=== PATIENT | male | born 1955 | race Caucasian/White ===

== ENCOUNTER 2021-02-06 17:30 | Emergency (ER) | payer OTHER ==
[~2021-02-06 17:30] MED LIST: ASPIR-LOW81 MG PO; CIPRO500 MG PO; CITRACAL + BON1 EACH PO; JANUMET 50-5001 EACH PO; KRILL OIL 5001 EAC1 PO; LOPRESSOR50 MG PO; MAGNESIUM250 M1 PO; NEURONTIN400 MG PO; VITAMIN D-32000 UNIT PO; ZOCOR40 MG PO; norco
[2021-02-06 20:05] LABS: BASOPHIL 0.5 % (0-2); EOSINOPHIL 1.9 % (0-7); HCT 46.9 % (42.0-52.0); HGB 14.9 g/dl (13.2-18.0); LYMPHOCYTE 35.2 % (15-48); MCH 29.4 pg (25.0-31.0); MCHC 31.8 g/dL (32.0-36.0); MCV 92.7 fL (78.0-100.0); MONOCYTE 6.6 % (0-12); MPV 12.7 fL (6.0-9.5); NEUTROPHIL 55.3 % (41-80); NRBC 0; PLT 162 K/uL (150-400); RBC 5.06 M/uL (4.70-6.00); RDW 15.3 % (11.5-14.0); WBC 7.9 K/uL (4.0-10.5)
[2021-02-06 20:18] LABS: LACTIC ACID 3.5 mmol/L (0.4-1.9)
[2021-02-06 20:36] LABS: ALBUMIN 3.5 g/dL (3.4-5.0); BILIRUBIN - TOTAL 0.3 mg/dL (0.2-1.0); BUN/CREAT RATIO (CALC) 37.2 RATIO; CREATININE 0.78 mg/dL (0.67-1.17); GLOBULIN (CALCULATION) 4.3 g/dL; POTASSIUM 4.1 mmol/L (3.5-5.1); TOTAL PROTEIN 7.8 g/dL (6.4-8.2)
[2021-02-06 20:49] LABS: BILIRUBIN 2+ mg/dL (NEGATIVE); BLOOD TRACE-INTACT Ery/uL (NEGATIVE); COLOR YELLOW (YELLOW); GLUCOSE (U) NORMAL (NORMAL); LEUKOCYTES 1+ Leu/uL (NEGATIVE); NITRITE NEGATIVE (NEGATIVE); PROTEIN TRACE (LOW) mg/dL (NEGATIVE); SPECIFIC GRAVITY >=1.030 (1.001-1.030); UROBILINOGEN 0.2 mg/dL (0.2-1.0)
[2021-02-06 20:50] LABS: CLARITY HAZY (CLEAR)
[2021-02-06 20:52] LABS: CORONAVIRUS 2019 SARS-COV-2 NEGATIVE (NEGATIVE); INFLUENZA A NAA NEGATIVE (NEGATIVE)
[2021-02-06 21:01] LABS: URINARY WBC 20-50
[2021-02-06 21:02] LABS: BACTERIA 2+; GRANULAR CASTS TRACE
[2021-02-06 21:04] LABS: YEAST PRESENT
[2021-02-06] MEDS ORDERED: BROMFED DM COU473 ML PO (23:09)
[2021-02-06] MEDS ORDERED: PHENERGAN25 M1 PO (23:09)
[2021-02-06] MEDS ORDERED: LEVAQUIN750 MG PO (23:09)
== END 2021-02-06 23:40 | disposition home or self-care (01) ==
LOC: FER 17:30
PROVIDERS: Emergency Medicine Emergency Medical Services
DX: J06.9 Acute upper respiratory infection, unspecified (principal); N39.0 Urinary tract infection, site not specified; I10 Essential (primary) hypertension; E11.9 Type 2 diabetes mellitus without complications; F17.200 Nicotine dependence, unspecified, uncomplicated; Z20.822 Contact with and (suspected) exposure to COVID-19; Z79.82 Long term (current) use of aspirin; Z79.899 Other long term (current) drug therapy
CPT/HCPCS: 36415; 71045; 80053; 81001; 83605; 84145; 84439; 84443; 84484; 85025; 87040; 87088; 93005; J0696; J2405; J7040; Q0169; U0002

== ENCOUNTER 2021-08-03 19:12 | Emergency (ER) | payer MEDICARE ==
[~2021-08-03 19:12] MED LIST changes: +BROMFED DM COU473 ML PO; +LEVAQUIN750 MG PO; +PHENERGAN25 M1 PO
[2021-08-03 23:16] LABS: BASOPHIL 0.3 % (0-2); EOSINOPHIL 0.1 % (0-7); HGB 11.6 g/dl (13.2-18.0); LYMPHOCYTE 12.6 % (15-48); MCH 29.4 pg (25.0-31.0); MCHC 32.2 g/dL (32.0-36.0); MCV 91.1 fL (78.0-100.0); MONOCYTE 6.6 % (0-12); MPV 10.9 fL (6.0-9.5); NRBC 0; PLT 203 K/uL (150-400); RBC 3.95 M/uL (4.70-6.00); RDW 16.9 % (11.5-14.0)
[2021-08-03 23:34] LABS: ALBUMIN 3.2 g/dL (3.4-5.0); BILIRUBIN - TOTAL 0.4 mg/dL (0.2-1.0); CREATININE 1.48 mg/dL (0.67-1.17); GLOBULIN (CALCULATION) 4.4 g/dL; POTASSIUM 3.8 mmol/L (3.5-5.1); TOTAL PROTEIN 7.6 g/dL (6.4-8.2)
[2021-08-04 01:48] LABS: BILIRUBIN NEGATIVE (NEGATIVE); BLOOD 2+ Ery/uL (NEGATIVE); CLARITY CLEAR (CLEAR); COLOR YELLOW (YELLOW); GLUCOSE (U) NORMAL (NORMAL); LEUKOCYTES 2+ Leu/uL (NEGATIVE); NITRITE NEGATIVE (NEGATIVE); PROTEIN 1+ mg/dL (NEGATIVE); SPECIFIC GRAVITY 1.015 (1.001-1.030); UROBILINOGEN 0.2 mg/dL (0.2-1.0)
[2021-08-04 01:55] LABS: BACTERIA 4+; URINARY WBC 20-50
[2021-08-04 01:56] LABS: SQUAMOUS EPITHELIAL CELLS RARE
[2021-08-04] MEDS ORDERED: BACTRIM DS TAB1 EACH PO (04:38)
== END 2021-08-04 04:50 | disposition home or self-care (01) ==
LOC: FER 19:12
PROVIDERS: Emergency Medicine
DX: R19.7 Diarrhea, unspecified (principal); N39.0 Urinary tract infection, site not specified; N20.0 Calculus of kidney; N17.9 Acute kidney failure, unspecified; I10 Essential (primary) hypertension; E11.9 Type 2 diabetes mellitus without complications; J44.9 Chronic obstructive pulmonary disease, unspecified; F17.200 Nicotine dependence, unspecified, uncomplicated
CPT/HCPCS: 36415; 80053; 81001; 85025; 87088; 87186; J0696; J2405; J7030

== ENCOUNTER 2021-08-09 09:10 | Emergency (ER) | payer MEDICARE ==
[~2021-08-09 09:10] MED LIST changes: +BACTRIM DS TAB1 EACH PO
== END 2021-08-09 12:42 | disposition expired ==
LOC: FER 09:10
DX: I95.9 Hypotension, unspecified (principal); I46.9 Cardiac arrest, cause unspecified; A41.9 Sepsis, unspecified organism; E11.9 Type 2 diabetes mellitus without complications; I10 Essential (primary) hypertension
CPT/HCPCS: 36600; 71045; 82803; 96365; 96375; J2185; J2543; J7030